=== PATIENT | male | born 1985 | race American Indian/Alaskan Native ===

== ENCOUNTER 2017-11-03 16:24 | Emergency (ER) | payer SELFPAY ==
--- NOTE | 2017-11-03 18:31 | Emergency Department Report ---
ED General Adult HPI - General Chief complaint: Allergic Reaction Stated complaint: ALLERGIC REACTION Time Seen by Provider: 11/03/17 18:16 Source: patient, EMS, RN notes reviewed Mode of arrival: Stretcher Limitations: No Limitations - History of Present Illness Initial comments: This is a 32-year-old male who was previously on known to this provider. He is brought to the hospital by EMS with the complaint of possible allergic reaction. Aspirin triage nurse documentation, patient complained of rash was given Benadryl and symptoms resolved. Patient currently denies headache, neck pain, chest pain, abdominal pain, shortness of breath, difficulty breathing. He also reports nonspecific rash yesterday which resolved. Denies new creams, colognes, laundry detergents. The patient further indicates that he's been able to have cheese steaks in the past without difficulty. He has no complaints at this time. -: Gradual Consistency: now resolved Improves with: none Worsens with: none Associated Symptoms: denies other symptoms, rash. denies: confusion, chest pain , cough, diaphoresis, fever/chills, headaches, loss of appetite, malaise, nausea /vomiting, shortness of breath, syncope, weakness - Related Data Previous Rx's Medication Instructions Recorded Last Taken Type EPINEPHrine [Epipen 2-Juan] 0.3 mg IM DAILY PRN #2 ml 11/03/17 Unknown Rx Famotidine [Pepcid] 20 mg PO BID #10 tablet 11/03/17 Unknown Rx diphenhydrAMINE [Benadryl] 50 mg PO Q8HR PRN #20 capsule 11/03/17 Unknown Rx Allergies Allergy/AdvReac Type Severity Reaction Status Date / Time No Known Allergies Allergy Unverified 11/03/17 18:08 ED Review of Systems ROS: Stated complaint: ALLERGIC REACTION Other details as noted in HPI ED Past Medical Hx - Past Medical History Previous Medical History?: No - Surgical History Past Surgical History?: Yes Additional Surgical History: Neck surgery for repair of herniated disc (2013) - Social History Smoking Status: Never Smoker Substance Use Type: Alcohol - Medications Home Medications: Home Medications Medication Instructions Recorded Confirmed Last Taken Type EPINEPHrine [Epipen 2-Juan] 0.3 mg IM DAILY PRN #2 ml 11/03/17 Unknown Rx Famotidine [Pepcid] 20 mg PO BID #10 tablet 02/26/18 Unknown Rx diphenhydrAMINE [Benadryl] 50 mg PO Q8HR PRN #20 capsule 11/03/17 Unknown Rx ED Physical Exam - General Limitations: No Limitations General appearance: alert, in no apparent distress - Head Head exam: Present: atraumatic, normocephalic - Eye Eye exam: Present: normal appearance, EOMI. Absent: nystagmus - ENT ENT exam: Present: normal exam, normal orophraynx, mucous membranes moist, normal external ear exam, other (there is no stridor. The patient is speaking in full sentences. He is watching TV. He is in no distress.) - Neck Neck exam: Present: normal inspection, full ROM - Respiratory Respiratory exam: Present: normal lung sounds bilaterally. Absent: respiratory distress, wheezes, rales, rhonchi, stridor, prolonged expiratory - Cardiovascular Cardiovascular Exam: Present: regular rate, normal rhythm, normal heart sounds. Absent: systolic murmur, diastolic murmur, rubs, gallop - GI/Abdominal GI/Abdominal exam: Present: soft, normal bowel sounds. Absent: distended, tenderness, guarding, rebound, rigid, pulsatile mass - Rectal Rectal exam: Present: deferred - Extremities Exam Extremities exam: Present: normal inspection, full ROM, normal capillary refill. Absent: pedal edema, joint swelling, calf tenderness - Back Exam Back exam: Present: normal inspection, full ROM. Absent: tenderness, CVA tenderness (R), paraspinal tenderness, vertebral tenderness - Neurological Exam Neurological exam: Present: alert, oriented X3, CN II-XII intact, normal gait, other (Extraocular movements intact. Tongue midline. No facial droop. Facial sensation intact to light touch in the V1, V2, V3 distribution bilaterally. 5 and 5 strength in 4 extremities.. Sensation is intact to light touch in 4 extremities.). Absent: motor sensory deficit - Psychiatric Psychiatric exam: Present: normal affect, normal mood - Skin Skin exam: Present: warm, dry, intact, normal color. Absent: rash ED Course Vital Signs 11/03/17 18:00 Temperature 98.7 F Pulse Rate 94 H Respiratory 20 Rate Blood Pressure 110/69 O2 Sat by Pulse 97 Oximetry ED Medical Decision Making - Lab Data Vital Signs 11/03/17 18:00 Temperature 98.7 F Pulse Rate 94 H Respiratory 20 Rate Blood Pressure 110/69 O2 Sat by Pulse 97 Oximetry - Medical Decision Making Differential diagnosis, including but not limited to: Allergic reaction, urticaria, nonspecific rash, Assessment and plan: 32-year-old male with possible allergic reaction, now clinically resolved, afebrile, with reassuring vital signs, speaking in full sentences, no airway distress, no stridor. No indication for steroid therapy at this time. Patient will be observed. Critical care attestation.: If time is entered above; I have spent that time in minutes in the direct care of this critically ill patient, excluding procedure time. ED Disposition Clinical Impression: Rash and nonspecific skin eruption Disposition: - TO HOME OR SELFCARE Is pt being admited?: No Does the pt Need Aspirin: No Condition: Good Instructions: Anaphylaxis (ED) Additional Instructions: Take medications as needed/directed. Follow-up with either her primary care doctor, child care development specialist or carbon sequestration plant manager within the next month for skin testing to determine if patient has specific allergies to any particular agent. Return to the ER right away with inability to speak, inability to breathe, chest pain, shortness of breath, or any new, worsening or different symptoms. Referrals: PRIMARY CARE, [Primary Care Provider] - 3-5 Days RACHELE RUEDA MD [Staff Physician] - 3-5 Days YANCI DEMPSEY MD [Staff Physician] - 3-5 Days
[2017-11-03 18:42] VITALS: BP 103/69
== END 2017-11-03 19:18 | disposition home or self-care (01) ==
LOC: ED 16:24
DX: R21 Rash and other nonspecific skin eruption (principal)
CPT/HCPCS: 99283

== ENCOUNTER 2017-12-06 17:35 | Emergency (ER) | payer SELFPAY ==
--- NOTE | 2017-12-06 17:54 | Emergency Department Report ---
HPI - General Chief Complaint: Allergic Reaction Time Seen by Provider: 12/06/17 17:50 - HPI HPI: Patient was brought to ED with itching all over, whelps in arms, after eating [place] hot dogs [place] the mall. He said that happened once before but unaware if he has any allergies. Patient denies any cough, shortness of breath, wheezing, throat closing type feeling. He denies any history of her blood pressure, diabetes. Patient received epinephrine 0.3 mg 1, Solu-Medrol 125 mg IV 1, Benadryl 12.5 mg IV 1 by EMS in route.. ED Past Medical Hx - Past Medical History Hx Hypertension: No Hx CVA: No - Surgical History Additional Surgical History: Neck surgery for repair of herniated disc (2013) - Social History Smoking Status: Never Smoker Substance Use Type: Alcohol - Medications Home Medications: Home Medications Medication Instructions Recorded Confirmed Last Taken Type Famotidine [Pepcid] 20 mg PO BID #10 tablet 11/03/17 Unknown Rx EPINEPHrine [Epipen 2-Juan] 0.3 mg IM DAILY PRN #2 ml 12/06/17 Unknown Rx Prednisone [predniSONE 5 mg (6-Day 5 mg PO .TAPER #1 tab.ds.pk 12/06/17 Unknown Rx Pack, 21 Tabs)] diphenhydrAMINE [Benadryl CAP] 50 mg PO Q8HR PRN #20 capsule 12/06/17 Unknown Rx ED Review of Systems ROS: Stated complaint: ALLERGIC REACTION Other details as noted in HPI Comment: All other systems reviewed and negative ENT: denies: ear pain, throat pain Skin: rash, pruritus Physical Exam - Physical Exam Physical Exam: - Physical Exam Physical Exam: - General Limitations: No Limitations General appearance: alert, in no apparent distress, obese - Head Head exam: Present: atraumatic, normocephalic - Eye Eye exam: Present: normal appearance - ENT ENT exam: Present: mucous membranes moist - Neck Neck exam: Present: normal inspection - Respiratory Respiratory exam: Present: normal lung sounds bilaterally. Absent: respiratory distress - Cardiovascular Cardiovascular Exam: Present: normal rhythm, tachycardia. Absent: systolic murmur, diastolic murmur, rubs, gallop - GI/Abdominal GI/Abdominal exam: Present: soft, normal bowel sounds - Extremities Exam Extremities exam: Present: normal inspection - Back Exam Back exam: Present: normal inspection - Neurological Exam Neurological exam: Present: alert, oriented X3 - Psychiatric Psychiatric exam: normal affect and mood - Skin Skin exam: Present: warm, dry, intact, normal color. Absent: rash ED Course - Reevaluation(s) Reevaluation #1: 12/06/17 19:47 Patient reexamined at 7:47 pM he states he is feeling much better, denies any rash, his itching as much improved, no sore throat, speaks in full sentences without difficulty advised to return to ED if symptoms returns. We'll discharge him with Benadryl, steroids pack, and epinephrine auto injector 1. Critical care attestation.: If time is entered above; I have spent that time in minutes in the direct care of this critically ill patient, excluding procedure time. ED Disposition Clinical Impression: Acute allergic reaction Qualifiers: Encounter type: initial encounter Qualified Code(s): T78.40XA - Allergy, unspecified, initial encounter Disposition: DC- TO HOME OR SELFCARE Is pt being admited?: No Does the pt Need Aspirin: No Condition: Stable Prescriptions: diphenhydrAMINE [Benadryl CAP] 50 mg PO Q8HR PRN #20 capsule PRN Reason: Allergic Reaction EPINEPHrine [Epipen 2-Juan] 0.3 mg IM DAILY PRN #2 ml PRN Reason: Allergic Reaction Prednisone [predniSONE 5 mg (6-Day Pack, 21 Tabs)] 5 mg PO .TAPER #1 tab.pk
[2017-12-06] MEDS ORDERED: PEPCID IV ONE (17:56)
[2017-12-06] MEDS ORDERED: BENADRYL IV ONE (17:56)
[2017-12-06] MEDS ORDERED: DECADRON IV ONE (18:01)
[2017-12-06] MEDS ORDERED: NACL 0.9% 1000 ML 1,000 ML IV ONE (18:04)
[2017-12-06 22:10] VITALS: BP 105/63
== END 2017-12-06 22:12 | disposition home or self-care (01) ==
LOC: ED 17:35
DX: T78.40XA Allergy, unspecified, initial encounter (principal); X58.XXXA Exposure to other specified factors, initial encounter; Y93.89 Activity, other specified; Y99.8 Other external cause status; Y92.89 Other specified places as the place of occurrence of the external cause
CPT/HCPCS: 96361; 96374; 96375; 99283; J1100; J1200; J7030